=== PATIENT | female | born 1975 | race American Indian/Alaskan Native ===

== ENCOUNTER 2016-11-12 23:55 | Inpatient (IN) | payer OTHER ==
[2016-11-13] MEDS ORDERED: KEPPRA 1,000 MG/NS 0.75% 100ML 1,000 MG/100 ML BAG IV ONE (00:29)
[2016-11-13] MEDS ORDERED: FIORICET PO ONE (00:29)
--- NOTE | 2016-11-13 00:36 | Emergency Department Report ---
HPI - General Chief Complaint: Seizure Time Seen by Provider: 11/13/16 00:21 - HPI HPI: Room 18 The patient is a 41-year-old female presenting with chief complaint seizure. The patient is visiting from [place] and had a witnessed generalized tonic-clonic seizure lasting for several minutes. The patient has a history of seizures states she only takes gabapentin for them has never been placed in a traditional antiepileptics. The patient states she typically has a seizure every month. The patient states her last seizure occurred approximately one month ago. Patient now complains of headache. Patient reportedly had a second seizure while being transported by EMS and was administered Ativan 2 mg IV. 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 Quality: Generalized tonic-clonic Severity: Moderate Modifying factors: [see above] Context: [see above] Mode of transportation: [not driving] ED Past Medical Hx - Past Medical History Previous Medical History?: Yes Hx Seizures: Yes Additional medical history: lupus, hpv - Surgical History Past Surgical History?: No Additional Surgical History: Gastric bypass, , endometrial ablation - Family History Family history: no significant - Social History Smoking Status: Never Smoker Substance Use Type: None (denies illicit drug use), Alcohol (rarely) ED Review of Systems ROS: Stated complaint: SEIZURE Other details as noted in HPI Comment: All other systems reviewed and negative Constitutional: denies: chills, fever Eyes: denies: eye pain, eye discharge, vision change ENT: denies: ear pain, throat pain Respiratory: denies: cough, shortness of breath, wheezing Cardiovascular: denies: chest pain, palpitations Endocrine: no symptoms reported Gastrointestinal: denies: abdominal pain, nausea, diarrhea Genitourinary: denies: urgency, dysuria, discharge Musculoskeletal: denies: back pain, joint swelling, arthralgia Skin: denies: rash, lesions Neurological: headache, other (seizure) Psychiatric: denies: anxiety, depression Hematological/Lymphatic: denies: easy bleeding, easy bruising Physical Exam - Physical Exam Vital Signs: Vital Signs 11/13/16 00:17 Temperature 97.7 F Pulse Rate 112 H Blood Pressure 156/96 O2 Sat by Pulse 100 Oximetry Physical Exam: GENERAL: The patient is well-developed well-nourished female lying on stretcher not appearing to be in acute distress. [] HEENT: Normocephalic. Atraumatic. Extraocular motions are intact. Patient has moist mucous membranes. NECK: Supple. Trachea midline CHEST/LUNGS: Clear to auscultation. There is no respiratory distress noted. HEART/CARDIOVASCULAR: Regular. There is no tachycardia. There is no gallop rub or murmur. ABDOMEN: Abdomen is soft, nontender. Patient has normal bowel sounds. There is no abdominal distention. SKIN: There is no rash. There is no edema. There is no diaphoresis. NEURO: The patient is awake, alert, and oriented. The patient is cooperative. The patient has no focal neurologic deficits. The patient has normal speech. Cranial nerves II through XII grossly intact MUSCULOSKELETAL: There is no evidence of acute injury. ED Course Vital Signs 11/13/16 00:17 Temperature 97.7 F Pulse Rate 112 H Blood Pressure 156/96 O2 Sat by Pulse 100 Oximetry - Reevaluation(s) Reevaluation #1: 11/13/16 00:48 Patient had a third seizure generalized tonic clonic. Will continue workup and admit the patient for status epilepticus ED Medical Decision Making - Lab Data Result diagrams: 11/13/16 00:54 11/13/16 00:54 Laboratory Tests 11/13/16 11/13/16 00:54 00:54 WBC 5.6 RBC 4.41 Hgb 8.4 L Hct 28.0 L MCV 63 L MCH 19 L MCHC 30 RDW 20.1 H Plt Count 386 Add Manual Diff Complete Total Counted 100 Seg Neuts % (Manual) 46.0 Band Neutrophils % 0 Lymphocytes % (Manual) 45.0 H Reactive Lymphs % (Man) 0 Monocytes % (Manual) 6.0 Eosinophils % (Manual) 2.0 Basophils % (Manual) 1.0 Metamyelocytes % 0 Myelocytes % 0 Promyelocytes % 0 Blast Cells % 0 Nucleated RBC % Not Reportable Seg Neutrophils # Man 2.6 Band Neutrophils # 0.0 Lymphocytes # (Manual) 2.5 Abs React Lymphs (Man) 0.0 Monocytes # (Manual) 0.3 Eosinophils # (Manual) 0.1 Basophils # (Manual) 0.1 Metamyelocytes # 0.0 Myelocytes # 0.0 Promyelocytes # 0.0 Blast Cells # 0.0 WBC Morphology Not Reportable Hypersegmented Neuts Not Reportable Hyposegmented Neuts Not Reportable Hypogranular Neuts Not Reportable Smudge Cells Not Reportable Toxic Granulation Not Reportable Toxic Vacuolation Not Reportable Dohle Bodies Not Reportable Pelger-Huet Anomaly Not Reportable Erica Rods Not Reportable Platelet Estimate Consistent w auto Clumped Platelets Not Reportable Plt Clumps, EDTA Not Reportable Large Platelets Not Reportable Giant Platelets Not Reportable Platelet Satelliting Not Reportable Plt Morphology Comment Not Reportable RBC Morphology Not Reportable Dimorphic RBCs Not Reportable Polychromasia Not Reportable Hypochromasia 2+ Poikilocytosis Not Reportable Anisocytosis 1+ Microcytosis 2+ Macrocytosis Not Reportable Spherocytes Not Reportable Pappenheimer Bodies Not Reportable Sickle Cells Not Reportable Target Cells Not Reportable Tear Drop Cells Not Reportable Ovalocytes Not Reportable Helmet Cells Not Reportable [place] Bodies Not Reportable [place] Rings Not Reportable [place] Cells Not Reportable Bite Cells Not Reportable Crenated Cell Not Reportable Elliptocytes Not Reportable Acanthocytes (Spur) Not Reportable Rouleaux Not Reportable Hemoglobin C Crystals Not Reportable Schistocytes Rare Malaria parasites Not Reportable Kartik Bodies Not Reportable Hem Pathologist Commnt No Sodium 145 Potassium 3.2 L Chloride 104.9 Carbon Dioxide 26 Anion Gap 17 BUN 12 Creatinine 0.5 L Estimated GFR > 60 BUN/Creatinine Ratio 24.00 Glucose 82 Calcium 8.6 Magnesium 2.30 - Radiology Data Radiology results: report reviewed (CT head), image reviewed (CT head) 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 ED Disposition Clinical Impression: Status epilepticus Disposition: OP ADMIT IP TO THIS HOSP Is pt being admited?: Yes Does the pt Need Aspirin: No Condition: Fair Referrals: PRIMARY CARE, [Primary Care Provider] - 3-5 Days Time of Disposition: 03:27 (hospitalist paged)
[2016-11-13 01:12] LABS: Hemoglobin 8.4 gm/dl (10.1-14.3); Mean Corpuscular HGB Conc 30 % (30-34); Platelet Count 386 K/mm3 (140-440); Red Blood Count 4.41 M/mm3 (3.65-5.03); White Blood Count 5.6 K/mm3 (4.5-11.0)
[2016-11-13 01:18] LABS: Mean Corpuscular Hemoglobin 19 pg (28-32); Mean Corpuscular Volume 63 fl (79-97); Red Cell Distribution Width 20.1 % (13.2-15.2)
[2016-11-13 01:27] LABS: Anion Gap 17 mmol/L; Blood Urea Nitrogen 12 mg/dL (7-17); Calcium 8.6 mg/dL (8.4-10.2); Carbon Dioxide 26 mmol/L (22-30); Chloride 104.9 mmol/L (98-107); Glucose 82 mg/dL (65-100); Potassium 3.2 mmol/L (3.6-5.0); Sodium 145 mmol/L (137-145)
--- NOTE | 2016-11-13 02:51 | Cat Scan Report ---
FINAL REPORT PROCEDURE: CT HEAD/BRAIN WO CON TECHNIQUE: Computerized tomography of the head was performed without contrast material. HISTORY: seizures, headache COMPARISON: No prior studies are available for comparison. FINDINGS: Skull and scalp: Normal. Paranasal sinuses: Normal. Ventricles and subarachnoid spaces: Normal. Cerebrum: No evidence of hemorrhage, acute infarction or mass . Cerebellum and brainstem: No evidence of hemorrhage, acute infarction or mass. Vasculature: Normal. Comments: None. IMPRESSION: There is no evidence of an acute intracranial process
[2016-11-13 03:21] LABS: Blastocytes % (Manual) 0 %
[2016-11-13 03:22] LABS: Anisocytosis 1+; Diff Status Complete; Hypochromasia 2+; Microcytosis 2+; Platelet Estimate Consistent w Auto; Schistocytes Rare
[2016-11-13] MEDS ORDERED: ZOFRAN IV PRN (04:24)
[2016-11-13] MEDS ORDERED: VITAMIN B-1 100 MG, FOLVITE 1 MG, INFUVITE 10 ML in NACL 0.9% 1000 ML 1,000 ML IV ONE (04:26)
--- NOTE | 2016-11-13 04:30 | Admit Criteria Form ---
Admission Criteria Documentation: SEIZURE Clinical Indications for Admission to Inpatient Care (Place 'X' for any and all applicable criteria): Admission is indicated for seizure and 1 or more of the following (1)(2)(3)(4)(5 )(6) [ ]I. Inpatient admission required rather than observation care (Also use Seizure: Observation Care Criteria as appropriate) because of 1 or more of the following: [ ]1) Altered mental status that is severe or persistent [ ]2) New focal neurologic deficit that is severe or persistent [ ]3) Metabolic disorder (eg, hypoglycemia, hyponatremia) that is severe or persistent [ ]4) Recurrent seizure [ ]5) Outpatient antiseizure regimen cannot be established (eg , patient cannot tolerate medication, initiation requires inpatient care) [ ]6) Need for ongoing intravenous infusion of anti-seizure medication [ ]7) Cerebral bleeding, hydrocephalus, or vasospasm monitoring [ ]8) Increased intracranial pressure or cerebral edema monitoring [ ]9) Other conditions, treatment or monitoring requiring inpatient admission [ X]II. Status epilepticus [A] or repetitive seizures not controlled with emergent treatment (6)(8) [ ]III. Brain disorder (eg, tumor, edema, and hydrocephalus) that requiring monitoring or intervention available only at inpatient level of care. [ ]IV. Brain insult (eg, severe trauma, stroke, drug toxicity, or withdrawal) that requires monitoring or intervention available only at inpatient level of care (10)(11) [ ]V. 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 The portions of the content which have been revised are identified through the use of italic text or in bold, and [facility] [employer] has neither reviewed nor approved the modified material. All other unmodified content is copyright [facility] [employer]. Please see references footnoted in the original [facility] edition 2017 Admission Criteria Met: Yes
[2016-11-13] MEDS: KCL 10MEQ/100ML 10 MEQ/100 ML BAG IV SCH ×4 (05:02→09:11)
[2016-11-13] MEDS: ATIVAN IV PRN ×2 (05:10→20:38)
--- NOTE | 2016-11-13 07:59 | History and Physical Report ---
CHIEF COMPLAINT: Seizure attack. HISTORY OF PRESENT ILLNESS: The patient is a 41-year-old female noted by family to have had seizure attack at home. The patient was visiting from [place] and was at home when she suddenly developed tonic-clonic seizure attack lasting for several minutes. Family member noted the patient also drinks alcohol, had some alcohol to drink yesterday and came from [place]. She said that she has been on gabapentin for her seizures. The patient has not had a seizure attack in about one month before this last attack and the patient was brought to the Emergency Room and had another seizure attack in the Emergency Room. Prior to the attack, patient did not complain of any fever or chills, chest pain or shortness of breath and during the attack the patient was noted to be foaming at the mouth. PAST MEDICAL HISTORY: Pertinent for seizure disorder, lupus erythematosus, human papilloma virus infection. PAST SURGICAL HISTORY: Pertinent for gastric bypass, , endometrial ablation. FAMILY HISTORY: Noncontributory. SOCIAL HISTORY: The patient drinks alcohol, does not smoke, does not use illicit drugs. MEDICATIONS: The patient is on gabapentin. ALLERGIES: THE PATIENT IS ALLERGIC TO SULFAMETHOXAZOLE AND TRIMETHOPRIM. REVIEW OF SYSTEMS: CONSTITUTIONAL: There is no fever, no chills, no diaphoresis. HEENT: There is no headache or sore throat. CARDIOVASCULAR SYSTEM: There is no chest pain, orthopnea. RESPIRATORY: There is no shortness of breath or cough. GASTROINTESTINAL SYSTEM: There is no nausea, no vomiting, no abdominal pain, diarrhea or constipation. NEUROLOGICAL SYSTEM: Seizure attack noted. Headache noted. There is a change in mental status after the seizure. MUSCULOSKELETAL SYSTEM: There is no joint pain or swelling. DERMATOLOGICAL SYSTEM: There is no skin rash or itching. GENITOURINARY: There is no dysuria, hematuria, or flank pain. Rest of system review is normal. PHYSICAL EXAMINATION: GENERAL: At the time of exam, the patient was found to be lethargic, but arousable and able to answer questions and not in acute distress. VITAL SIGNS: Shows temperature of 97 degrees Fahrenheit, pulse of 69, respirations 18, blood pressure 90/49, O2 sat of 100% on room air. HEENT: Exam showed pupils to be equal, round, reactive to light and accommodation. Extraocular muscles are intact. NECK: Supple with no JVD or carotid bruit. CARDIOVASCULAR SYSTEM: Show first and second heart sounds with no gallops or murmurs. RESPIRATORY: Showed good air entry on both sides of the lungs with no abnormal breath sounds. GASTROINTESTINAL SYSTEM: Show abdomen to be full, soft, nontender with no organomegaly or rigidity. NEUROLOGIC: Showed no focal deficit. MUSCULOSKELETAL: Show no joint swelling or tenderness. DERMATOLOGICAL: Show no skin rash. GENITOURINARY: Showing no costovertebral angle tenderness. PERTINENT LABORATORY AND IMAGING STUDIES: The patient had a CT of the head without contrast done that shows no acute lesion. The patient's lab results show CBC with normal white count, low hemoglobin of 8.4 and low hematocrit of 28 with low MCV of 63, suggestive of iron deficiency anemia. CBC differential showed elevated leukocyte count of 45% with normal segmented neutrophils with no significant bands. The patient's chemistry shows slight decrease in potassium of 3.2, unremarkable renal function test, normal magnesium level. DIAGNOSES: 1.Status epilepticus. 2.Hypokalemia. PLAN: The patient will be admitted to medical floor on telemetry and will be started on Keppra 1000 mg by mouth twice daily, having had the first dose IV in the Emergency Room with a dose of 1000 mg. The patient will have IV KCl 10 mEq in 100 mL of normal saline at 1 hour x 3 doses. The patient will be on IV Ativan 1 mg q.2 hours as needed for seizure disorder and will be on IV Zofran 4 mg every 8 hours for nausea and vomiting. The patient will be on Tylenol 650 mg by mouth every 4 hours for fever and headache and will be on banana bag consisting of 1 liter of normal saline mix with 100 mg of thiamine, 1 mg of folic acid, 1 amp of multivitamin and run at the rate of 250 mL an hour x 1 dose. The patient will be placed on regular diet and will be on 2 liters per minute of oxygen by nasal cannula. JOB# [id number] OCN/NTS
[2016-11-13] MEDS: KEPPRA PO SCH ×2 (09:11→21:59)
[2016-11-13] MEDS: TYLENOL PO PRN (12:39)
--- NOTE | 2016-11-13 13:41 | Event Note ---
Date: 11/13/16 Patient seen and evaluated medical records reviewed No new events reported by the nursing staff Admitted with seizure episode, no new episodes of seizures since admission Agree with the current management, seizure precautions Consult neurology, possible EEG Will check home medication list and resume appropriate home medications Plan of care discussed with the patient, her nurse and case management
[2016-11-13] MEDS ORDERED: ULTRAM PO PRN ×2 (13:59→16:58)
[2016-11-13] MEDS ORDERED: NON-FORMULARY (Gabapentin [Neurontin] 600 MG) PO SCH (17:00)
[2016-11-13] MEDS: NEURONTIN PO SCH (18:41)
[2016-11-14] MEDS: MORPHINE IV PRN ×4 (02:29→16:25)
[2016-11-14] MEDS: NEURONTIN PO SCH ×3 (05:33→21:21)
[2016-11-14 06:03] LABS: Anion Gap 14 mmol/L; Blood Urea Nitrogen 10 mg/dL (7-17); Calcium 8.4 mg/dL (8.4-10.2); Carbon Dioxide 28 mmol/L (22-30); Chloride 103.2 mmol/L (98-107); Glucose 84 mg/dL (65-100); Potassium 3.1 mmol/L (3.6-5.0); Sodium 142 mmol/L (137-145)
--- NOTE | 2016-11-14 08:51 | Progress Note ---
Assessment and Plan Assessment and plan: --Seizures; No new episodes since admission, continue antiepileptic medications Neurology evaluation and recommendations, EEG Seizure precautions --Hypokalemia; replace per protocol and monitor levels --Neuropathy; continue Neurontin and supportive care --History of lupus; continue steroids and supportive care --Depression: Patient lost her few months ago, no suicidal thoughts or ideation Psych evaluation, antidepression medications --DVT prophylaxis Lovenox Plan of care discussed with the patient her nurse and case management History Interval history: Patient seen and evaluated medical records reviewed No new events reported by the nursing staff Patient reports that she lost with a few months ago Patient is depressed and crying, no suicidal thoughts or ideation Complaints of pain and asks for Dilaudid Alert awake oriented 3 not in acute distress Hospitalist Physical - Constitutional Vitals: Temp Pulse Resp BP Pulse Ox 97.9 F 86 18 122/77 99 11/14/16 08:35 11/14/16 08:35 11/14/16 08:35 11/14/16 08:35 11/14/16 08:35 General appearance: Present: mild distress, well-nourished, other (crying states she misses her ) - EENT Eyes: Present: PERRL, EOM intact - Neck Neck: Present: supple, normal ROM - Respiratory Respiratory effort: normal Respiratory: negative: rales, rhonchi, wheezing - Cardiovascular Rhythm: regular Heart Sounds: Present: S1 & S2 - Extremities Extremities: no ischemia, No edema - Abdominal General gastrointestinal: soft, non-tender, non-distended, normal bowel sounds - Integumentary Integumentary: Present: clear, warm - Psychiatric Psychiatric: appropriate mood/affect, other (teary sometimes) - Neurologic Neurologic: moves all extremities Results - Labs CBC & Chem 7: 11/13/16 00:54 11/14/16 04:33 Labs: Laboratory Last Values WBC 5.6 K/mm3 (4.5-11.0) 11/13/16 00:54 RBC 4.41 M/mm3 (3.65-5.03) 11/13/16 00:54 Hgb 8.4 gm/dl (10.1-14.3) L 11/13/16 00:54 Hct 28.0 % (30.3-42.9) L 11/13/16 00:54 MCV 63 fl (79-97) L 11/13/16 00:54 MCH 19 pg (28-32) L 11/13/16 00:54 MCHC 30 % (30-34) 11/13/16 00:54 RDW 20.1 % (13.2-15.2) H 11/13/16 00:54 Plt Count 386 K/mm3 (140-440) 11/13/16 00:54 Add Manual Diff Complete 11/13/16 00:54 Total Counted 100 11/13/16 00:54 Seg Neuts % (Manual) 46.0 % (40.0-70.0) 11/13/16 00:54 Band Neutrophils % 0 % 11/13/16 00:54 Lymphocytes % (Manual) 45.0 % (13.4-35.0) H 11/13/16 00:54 Reactive Lymphs % (Man) 0 % 11/13/16 00:54 Monocytes % (Manual) 6.0 % (0.0-7.3) 11/13/16 00:54 Eosinophils % (Manual) 2.0 % (0.0-4.3) 11/13/16 00:54 Basophils % (Manual) 1.0 % (0.0-1.8) 11/13/16 00:54 Metamyelocytes % 0 % 11/13/16 00:54 Myelocytes % 0 % 11/13/16 00:54 Promyelocytes % 0 % 11/13/16 00:54 Blast Cells % 0 % 11/13/16 00:54 Nucleated RBC % Not Reportable 11/13/16 00:54 Seg Neutrophils # Man 2.6 K/mm3 (1.8-7.7) 11/13/16 00:54 Band Neutrophils # 0.0 K/mm3 11/13/16 00:54 Lymphocytes # (Manual) 2.5 K/mm3 (1.2-5.4) 11/13/16 00:54 Abs React Lymphs (Man) 0.0 K/mm3 11/13/16 00:54 Monocytes # (Manual) 0.3 K/mm3 (0.0-0.8) 11/13/16 00:54 Eosinophils # (Manual) 0.1 K/mm3 (0.0-0.4) 11/13/16 00:54 Basophils # (Manual) 0.1 K/mm3 (0.0-0.1) 11/13/16 00:54 Metamyelocytes # 0.0 K/mm3 11/13/16 00:54 Myelocytes # 0.0 K/mm3 11/13/16 00:54 Promyelocytes # 0.0 K/mm3 11/13/16 00:54 Blast Cells # 0.0 K/mm3 11/13/16 00:54 WBC Morphology Not Reportable 11/13/16 00:54 Hypersegmented Neuts Not Reportable 11/13/16 00:54 Hyposegmented Neuts Not Reportable 11/13/16 00:54 Hypogranular Neuts Not Reportable 11/13/16 00:54 Smudge Cells Not Reportable 11/13/16 00:54 Toxic Granulation Not Reportable 11/13/16 00:54 Toxic Vacuolation Not Reportable 11/13/16 00:54 Dohle Bodies Not Reportable 11/13/16 00:54 Pelger-Huet Anomaly Not Reportable 11/13/16 00:54 Erica Rods Not Reportable 11/13/16 00:54 Platelet Estimate Consistent w auto 11/13/16 00:54 Clumped Platelets Not Reportable 11/13/16 00:54 Plt Clumps, EDTA Not Reportable 11/13/16 00:54 Large Platelets Not Reportable 11/13/16 00:54 Giant Platelets Not Reportable 11/13/16 00:54 Platelet Satelliting Not Reportable 11/13/16 00:54 Plt Morphology Comment Not Reportable 11/13/16 00:54 RBC Morphology Not Reportable 11/13/16 00:54 Dimorphic RBCs Not Reportable 11/13/16 00:54 Polychromasia Not Reportable 11/13/16 00:54 Hypochromasia 2+ 11/13/16 00:54 Poikilocytosis Not Reportable 11/13/16 00:54 Anisocytosis 1+ 11/13/16 00:54 Microcytosis 2+ 11/13/16 00:54 Macrocytosis Not Reportable 11/13/16 00:54 Spherocytes Not Reportable 11/13/16 00:54 Pappenheimer Bodies Not Reportable 11/13/16 00:54 Sickle Cells Not Reportable 11/13/16 00:54 Target Cells Not Reportable 11/13/16 00:54 Tear Drop Cells Not Reportable 11/13/16 00:54 Ovalocytes Not Reportable 11/13/16 00:54 Helmet Cells Not Reportable 11/13/16 00:54 [place] Bodies Not Reportable 11/13/16 00:54 [place] Rings Not Reportable 11/13/16 00:54 Nicole Cells Not Reportable 11/13/16 00:54 Bite Cells Not Reportable 11/13/16 00:54 Crenated Cell Not Reportable 11/13/16 00:54 Elliptocytes Not Reportable 11/13/16 00:54 Acanthocytes (Spur) Not Reportable 11/13/16 00:54 Rouleaux Not Reportable 11/13/16 00:54 Hemoglobin C Crystals Not Reportable 11/13/16 00:54 Schistocytes Rare 11/13/16 00:54 Malaria parasites Not Reportable 11/13/16 00:54 Kartik Bodies Not Reportable 11/13/16 00:54 Hem Pathologist Commnt No 11/13/16 00:54 Sodium 142 mmol/L (137-145) 11/14/16 04:33 Potassium 3.1 mmol/L (3.6-5.0) L 11/14/16 04:33 Chloride 103.2 mmol/L (98-107) 11/14/16 04:33 Carbon Dioxide 28 mmol/L (22-30) 11/14/16 04:33 Anion Gap 14 mmol/L 11/14/16 04:33 BUN 10 mg/dL (7-17) 11/14/16 04:33 Creatinine 0.4 mg/dL (0.7-1.2) L 11/14/16 04:33 Estimated GFR > 60 ml/min 11/14/16 04:33 BUN/Creatinine Ratio 25.00 % 11/14/16 04:33 Glucose 84 mg/dL (65-100) 11/14/16 04:33 Calcium 8.4 mg/dL (8.4-10.2) 11/14/16 04:33 Magnesium 2.30 mg/dL (1.7-2.3) 11/13/16 00:54
[2016-11-14] MEDS ORDERED: K-DUR PO NR (09:00)
[2016-11-14] MEDS ORDERED: DELTASONE PO SCH ×2 (10:00→17:48)
--- NOTE | 2016-11-14 10:11 | History and Physical Report ---
History of Present Illness Date of examination: 11/14/16 Date of admission: 11/13/16 04:21 Chief complaint: NEUROOGY CONSULTATION BRIEF NOTE (SEE DICATED WORK UP) Hx reviewed. Gerard has a past hx of gastric bypass in 2008, and was diagnosed as having Lupus by CXR and lymph node bx from a node in her posterior neck 6 mos ago and is on Prednisione for that. She is in the midst of a flare with extremity pain, her usual flare sx. six mos ago she was also dxed with a TC seizure disorder, had an MRI in [place], [place] which she was told was normal, and was begun on Gabapentin 600 mg po TID. On this regimen she has a seizure once per month, with premonitory "dizziness" for 3 seconds before losing awareness. She had never bitten her tongue but has lost continence as she did on this occasion when she had another seizure two days ago. She is visiting friends in the area. she does not drive because of her seizures. She will return to family in [place], [place] when discharged. Her neuro exam is normal at this time. No evidence of tongue biting. CT head normal. IMP: 1. 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 Lupus Erythematosis, currently in flare, on steroid Rx ERCC: 1. We await EEG result. Study has been ordered. 2 See no need for additional neuro tests. 3. Continue Keppra, only I would reduce it to eg. 750 mg BID as she is not overweight. Keep the Neurontin at 600 mg po TID for now, with instructions to taper it to off under the direction of her [place] MDs. 4. Continue no Driving which patient voiced understanding of. 5. Consider steroid increase as patient is currently in Lupus flare and is in pain. 6. Go from there. Call as needed. Wilmer Hope MD Medications and Allergies Allergies Allergy/AdvReac Type Severity Reaction Status Date / Time sulfamethoxazole Allergy Swelling Verified 11/13/16 00:17 [From Bactrim] trimethoprim [From Bactrim] Allergy Swelling Verified 11/13/16 00:17 Home Medications Medication Instructions Recorded Confirmed Last Taken Type Gabapentin [Neurontin] 600 mg PO Q8H 11/13/16 11/13/16 Unknown History Prednisone [predniSONE] 1 mg PO QDAY 11/13/16 11/13/16 Unknown History Vit C/Ascorbate Ca/Ascorb Sod 500 mg PO DAILY 11/13/16 11/13/16 Unknown History [Vitamin C 500 mg/15 ml Liquid] traMADol [Ultram] 50 mg PO Q6HR PRN 11/13/16 11/13/16 Unknown History Active Meds: Active Medications Acetaminophen (Tylenol) 650 mg PO Q4H PRN PRN Reason: For Pain/Fever/Headache Last Admin: 11/13/16 12:39 Dose: 650 mg Gabapentin (Neurontin) 600 mg PO Q8HR [facility] Last Admin: 11/14/16 05:33 Dose: 600 mg Levetiracetam (Keppra) 1,000 mg PO BID [facility] Last Admin: 11/13/16 21:59 Dose: 1,000 mg Lorazepam (Ativan) 1 mg IV Q2H PRN PRN Reason: Seizures Last Admin: 11/13/16 20:38 Dose: 1 mg Morphine Sulfate (Morphine) 2 mg IV Q3H PRN PRN Reason: Pain, Moderate (4-6) Last Admin: 11/14/16 05:35 Dose: 2 mg Ondansetron HCl (Zofran) 4 mg IV Q8H PRN PRN Reason: Nausea And Vomiting Potassium Chloride (K-Dur) 40 meq PO ONCE NR Stop: 11/14/16 12:00 Prednisone (Deltasone) 10 mg PO QDAY [facility] Physical Examination - Vital Signs Vital Signs: Vital Signs Temp Pulse BP Pulse Ox 97.7 F 112 H 156/96 100 11/13/16 00:17 11/13/16 00:17 11/13/16 00:17 11/13/16 00:17 Results - Laboratory Findings CBC and BMP: 11/13/16 00:54 11/14/16 04:33 Abnormal Lab Findings: Abnormal Labs 11/14/16 04:33 Potassium 3.1 L Creatinine 0.4 L
[2016-11-14] MEDS: KEPPRA PO SCH ×2 (10:29→21:21)
[2016-11-14] MEDS ORDERED: DILAUDID IV ONE (17:38)
--- NOTE | 2016-11-14 19:08 | Event Note ---
Date: 11/14/16 I was called by the nurse reporting patient is severely depressed and want to talk to the physician I went and evaluated the patient, charge nurse was present, patient feels slightly better Reports that she feels depressed and miss her who a few months ago , and becomes teary Denies suicidal thoughts or suicidal ideation, feels anxious Pending psych evaluation, advise low-dose Xanax when necessary for anxiety Changed pain medication to IV Dilaudid when necessary. Vital signs reviewed stable
[2016-11-14] MEDS ORDERED: DELTASONE PO ONE (20:00)
[2016-11-14] MEDS: TYLENOL PO PRN (21:21)
[2016-11-14] MEDS: XANAX PO PRN (21:21)
--- NOTE | 2016-11-14 22:55 | Consultation ---
CHIEF COMPLAINT: I am asked to see this 41-year-old -[place] woman for evaluation of a breakthrough seizure that occurred 2 days ago. The patient is status post gastric bypass surgery in 2008 and had a diagnosis of lupus erythematosus that made 6 months ago in [place], [place]. This was done by chest x-ray and biopsy of a posterior cervical lymph node. She has been on steroid therapy since that time. She is presently in a lupus flare. She reports having severe pain in both arms and both legs, hands and feet for 2 days. Also, 6 months ago, she experienced her first grand mal tonic-clonic seizure and was diagnosed as having a seizure disorder, also in [place], [place]. An MRI scan of the brain was carried out and she was informed that this was normal. She had an EEG at that time. She was placed on a regimen of gabapentin (Neurontin) 600 mg p.o. t.i.d. She has had one seizure per month on this regimen. Most recently, she was visiting family in the area here when she had another seizure. She has a 3 second prodromal feeling \\"dizzy\\" before losing awareness. She has never bitten her tongue, but has lost control of function in the past, which she did on this occasion as well. She came into the ED. A CT scan of the head was normal. There is no family history of seizures. FAMILY HISTORY: The patient's 6 months ago of a heart attack and asthma. He was apparently very overweight. There is no history of seizures in the patient's family. There is a history of heart disease. SOCIAL HISTORY: She has 5 grown children, who are doing well. CURRENT MEDICATIONS AND ALLERGIES: See record. PHYSICAL EXAMINATION: GENERAL: She appears well-developed, well-nourished woman, lying in bed with a mild headache, which she says she gets after she has a seizure. She complains of pain in her hands and feet, arms and legs. NECK: Supple. There are no carotid bruits. CARDIAC: Without murmurs, rubs, or gallops. LUNGS: Clear to auscultation. ABDOMEN: Soft. Bowel sounds are normal. EXTREMITIES: Have one ecchymosis on the right anterior thigh, but not elsewhere. NEUROLOGIC: She is alert and oriented x 3 and her speech is fluent and clear without letter or word substitution. She renders a coherent history. Fund of knowledge normal. Recent and remote memory are intact. Cranial nerves 2 through 12 are normal. Specifically, extraocular movements are full without nystagmus. Both pupils are 4 mm in diameter and react normally to bright light illumination. Mario are full to finger confrontation. There is no facial sensory or motor deficit. She hears without difficulty. The uvula elevates and the tongue protrudes in the midline. Shoulder shrug is normal, strong, and symmetric on both sides. MOTOR: Reveals normal strength in all 4 extremities proximally and distally. Sensation is intact to light touch throughout. CEREBELLAR: Testing by [id number] examination is normal. Tendon reflexes are 1+ at the biceps, 2+ at both knees, 1+ at both ankles and both great toes are downgoing to plantar stimulation. Gait is not tested at this time. IMPRESSION: 1. Grand mal tonic-clonic seizure disorder diagnosed 6 months ago and inadequately controlled on Neurontin 600 mg t.i.d. with recent breakthrough spell. 2. Lupus erythematosus, currently in flare on steroid therapy. 3. Status post gastric bypass surgery in 2008. RECOMMENDATION: 1. We will await the EEG result. The study has been ordered. 2. I see no need for additional neuro testing at this time. 3. I would continue the Keppra only. I would reduce it to 750 mg twice daily as she is not overweight. I would continue the Neurontin 600 mg p.o. t.i.d. for now with instructions to taper it off under the direction of her [place] physicians. She will return to [place], [place] following discharge from this hospital. 4. Continue no driving, which the patient voiced understanding of. 5. Consider a steroid increase as the patient is currently in a lupus flare and is in pain. 6. Go from there. Call as needed. JOB# [id number] ACB/TATO ECHEVARRIA
[2016-11-15] MEDS: DILAUDID IV PRN ×3 (00:26→13:06)
[2016-11-15] MEDS: XANAX PO PRN ×2 (05:34→15:51)
[2016-11-15] MEDS: NEURONTIN PO SCH ×2 (05:34→13:00)
[2016-11-15 05:45] LABS: Magnesium 2.1 mg/dL (1.7-2.3); Potassium 4.1 mmol/L (3.6-5.0)
--- NOTE | 2016-11-15 08:40 | Discharge Summary ---
Providers - Providers Date of Admission: 11/13/16 04:21 Date of discharge: 11/15/16 Attending physician: SHADE SEGOVIA 11/13/16 13:41 Consult to Physician [CONS] Routine Consulting Provider: PRASANTH LAU Reason For Exam: seizures Place consult to:: Dr. Lau Notified:: Jo Ann TANNER 11/14/16 17:35 psychiatry consult [Consult to Mental Health] [CONS] Routine Reason For Exam: depression/ few mths ago Place consult to:: Mental Health Notified:: Jo Ann TANNER Phone number called:: [phone] Was contact made?: Yes If yes, spoke with:: Bria-Sunsea Time called:: 18:24 Primary care physician: DIRECTOR CORPORATE Hospitalization Reason for admission: seizure episode Condition: Fair Disposition: DC-01 TO HOME OR SELFCARE Time spent for discharge: 32 min Core Measure Documentation - Palliative Care Palliative Care/ Comfort Measures: Not Applicable - Core Measures Any of the following diagnoses?: none Exam - Constitutional Vitals: Temp Pulse Resp BP Pulse Ox 97.9 F 91 H 20 151/89 100 11/15/16 04:20 11/15/16 04:20 11/15/16 04:20 11/15/16 04:20 11/15/16 04:20 General appearance: Present: no acute distress, well-nourished - EENT Eyes: Present: PERRL, EOM intact - Neck Neck: Present: supple, normal ROM - Respiratory Respiratory effort: normal Respiratory: bilateral: diminished, negative: rales, rhonchi, wheezing - Cardiovascular Rhythm: regular Heart Sounds: Present: S1 & S2 - Extremities Extremities: no ischemia, pulses intact Peripheral Pulses: within normal limits - Abdominal General gastrointestinal: Present: soft, non-tender, non-distended, normal bowel sounds - Integumentary Integumentary: Present: clear, warm - Musculoskeletal Musculoskeletal: strength equal bilaterally - Psychiatric Psychiatric: appropriate mood/affect, cooperative - Neurologic Neurologic: CNII-XII intact, moves all extremities Plan Activity: no restrictions, no driving until cleared by PCP, other (seizure precautions) Diet: regular Additional Instructions: f/u Behavioral health 3-4 days. f/u private neurologist 1 wk. Check with primary care physician for more prescriptions as needed. Follow-up private stabilizer operator in 1 week Follow up with: PRIMARY CARE, [Primary Care Provider] - 3-5 Days Prescriptions: ALPRAZolam [Xanax TAB] 0.25 mg PO QHS PRN #5 tablet PRN Reason: Anxiety levETIRAcetam [Keppra TAB] 750 mg PO BID #30 tablet oxyCODONE /ACETAMINOPHEN [Percocet 5/325] 1 tab PO QDAY #5 tablet Prednisone [predniSONE] 20 mg PO QDAY #15 tablet
[2016-11-15] MEDS ORDERED: DELTASONE PO SCH (10:00)
[2016-11-15] MEDS: KEPPRA PO SCH (10:40)
[2016-11-15 16:04] VITALS: BP 133/91
--- NOTE | 2016-11-15 20:35 | Progress Note ---
Hospitalist Physical - Constitutional Vitals: Temp Pulse Resp BP Pulse Ox 98.0 F 86 18 133/91 100 11/15/16 16:00 11/15/16 16:00 11/15/16 16:00 11/15/16 16:00 11/15/16 16:00 General appearance: Present: no acute distress, well-nourished Results - Labs CBC & Chem 7: 11/13/16 00:54 11/15/16 04:48 Labs: Laboratory Last Values WBC 5.6 K/mm3 (4.5-11.0) 11/13/16 00:54 RBC 4.41 M/mm3 (3.65-5.03) 11/13/16 00:54 Hgb 8.4 gm/dl (10.1-14.3) L 11/13/16 00:54 Hct 28.0 % (30.3-42.9) L 11/13/16 00:54 MCV 63 fl (79-97) L 11/13/16 00:54 MCH 19 pg (28-32) L 11/13/16 00:54 MCHC 30 % (30-34) 11/13/16 00:54 RDW 20.1 % (13.2-15.2) H 11/13/16 00:54 Plt Count 386 K/mm3 (140-440) 11/13/16 00:54 Add Manual Diff Complete 11/13/16 00:54 Total Counted 100 11/13/16 00:54 Seg Neuts % (Manual) 46.0 % (40.0-70.0) 11/13/16 00:54 Band Neutrophils % 0 % 11/13/16 00:54 Lymphocytes % (Manual) 45.0 % (13.4-35.0) H 11/13/16 00:54 Reactive Lymphs % (Man) 0 % 11/13/16 00:54 Monocytes % (Manual) 6.0 % (0.0-7.3) 11/13/16 00:54 Eosinophils % (Manual) 2.0 % (0.0-4.3) 11/13/16 00:54 Basophils % (Manual) 1.0 % (0.0-1.8) 11/13/16 00:54 Metamyelocytes % 0 % 11/13/16 00:54 Myelocytes % 0 % 11/13/16 00:54 Promyelocytes % 0 % 11/13/16 00:54 Blast Cells % 0 % 11/13/16 00:54 Nucleated RBC % Not Reportable 11/13/16 00:54 Seg Neutrophils # Man 2.6 K/mm3 (1.8-7.7) 11/13/16 00:54 Band Neutrophils # 0.0 K/mm3 11/13/16 00:54 Lymphocytes # (Manual) 2.5 K/mm3 (1.2-5.4) 11/13/16 00:54 Abs React Lymphs (Man) 0.0 K/mm3 11/13/16 00:54 Monocytes # (Manual) 0.3 K/mm3 (0.0-0.8) 11/13/16 00:54 Eosinophils # (Manual) 0.1 K/mm3 (0.0-0.4) 11/13/16 00:54 Basophils # (Manual) 0.1 K/mm3 (0.0-0.1) 11/13/16 00:54 Metamyelocytes # 0.0 K/mm3 11/13/16 00:54 Myelocytes # 0.0 K/mm3 11/13/16 00:54 Promyelocytes # 0.0 K/mm3 11/13/16 00:54 Blast Cells # 0.0 K/mm3 11/13/16 00:54 WBC Morphology Not Reportable 11/13/16 00:54 Hypersegmented Neuts Not Reportable 11/13/16 00:54 Hyposegmented Neuts Not Reportable 11/13/16 00:54 Hypogranular Neuts Not Reportable 11/13/16 00:54 Smudge Cells Not Reportable 11/13/16 00:54 Toxic Granulation Not Reportable 11/13/16 00:54 Toxic Vacuolation Not Reportable 11/13/16 00:54 Dohle Bodies Not Reportable 11/13/16 00:54 Pelger-Huet Anomaly Not Reportable 11/13/16 00:54 Erica Rods Not Reportable 11/13/16 00:54 Platelet Estimate Consistent w auto 11/13/16 00:54 Clumped Platelets Not Reportable 11/13/16 00:54 Plt Clumps, EDTA Not Reportable 11/13/16 00:54 Large Platelets Not Reportable 11/13/16 00:54 Giant Platelets Not Reportable 11/13/16 00:54 Platelet Satelliting Not Reportable 11/13/16 00:54 Plt Morphology Comment Not Reportable 11/13/16 00:54 RBC Morphology Not Reportable 11/13/16 00:54 Dimorphic RBCs Not Reportable 11/13/16 00:54 Polychromasia Not Reportable 11/13/16 00:54 Hypochromasia 2+ 11/13/16 00:54 Poikilocytosis Not Reportable 11/13/16 00:54 Anisocytosis 1+ 11/13/16 00:54 Microcytosis 2+ 11/13/16 00:54 Macrocytosis Not Reportable 11/13/16 00:54 Spherocytes Not Reportable 11/13/16 00:54 Pappenheimer Bodies Not Reportable 11/13/16 00:54 Sickle Cells Not Reportable 11/13/16 00:54 Target Cells Not Reportable 11/13/16 00:54 Tear Drop Cells Not Reportable 11/13/16 00:54 Ovalocytes Not Reportable 11/13/16 00:54 Helmet Cells Not Reportable 11/13/16 00:54 [place] Bodies Not Reportable 11/13/16 00:54 [place] Rings Not Reportable 11/13/16 00:54 Nicole Cells Not Reportable 11/13/16 00:54 Bite Cells Not Reportable 11/13/16 00:54 Crenated Cell Not Reportable 11/13/16 00:54 Elliptocytes Not Reportable 11/13/16 00:54 Acanthocytes (Spur) Not Reportable 11/13/16 00:54 Rouleaux Not Reportable 11/13/16 00:54 Hemoglobin C Crystals Not Reportable 11/13/16 00:54 Schistocytes Rare 11/13/16 00:54 Malaria parasites Not Reportable 11/13/16 00:54 Kartik Bodies Not Reportable 11/13/16 00:54 Hem Pathologist Commnt No 11/13/16 00:54 Sodium 142 mmol/L (137-145) 11/14/16 04:33 Potassium 4.1 mmol/L (3.6-5.0) D 11/15/16 04:48 Chloride 103.2 mmol/L (98-107) 11/14/16 04:33 Carbon Dioxide 28 mmol/L (22-30) 11/14/16 04:33 Anion Gap 14 mmol/L 11/14/16 04:33 BUN 10 mg/dL (7-17) 11/14/16 04:33 Creatinine 0.4 mg/dL (0.7-1.2) L 11/14/16 04:33 Estimated GFR > 60 ml/min 11/14/16 04:33 BUN/Creatinine Ratio 25.00 % 11/14/16 04:33 Glucose 84 mg/dL (65-100) 11/14/16 04:33 Calcium 8.4 mg/dL (8.4-10.2) 11/14/16 04:33 Magnesium 2.10 mg/dL (1.7-2.3) 11/15/16 04:48
[2016-11-16] MEDS: KEPPRA PO SCH (00:13)
[2016-11-16] MEDS: NEURONTIN PO SCH (00:13)
[2016-11-16] MEDS: XANAX PO PRN (00:16)
== END 2016-11-16 00:17 | disposition home or self-care (01) | DRG 101 ==
LOC: ED 23:55 → 4A 11-13 04:21
PROVIDERS: ADMIT Internal Medicine; ATTEND Internal Medicine
DX: G40.901 Epilepsy, unspecified, not intractable, with status epilepticus (principal); E87.6 Hypokalemia; L93.0 Discoid lupus erythematosus; G62.9 Polyneuropathy, unspecified; F32.9 Major depressive disorder, single episode, unspecified; Z98.84 Bariatric surgery status; Z88.2 Allergy status to sulfonamides
CPT/HCPCS: 36415; 70450; 80048; 83735; 84132; 85007; 85025; 96365; 96375; J1170; J1953; J2060; J2270; J3411; J3480; J7030; J7512